=== PATIENT | female | born 1965 | race Hispanic/Latino ===

== ENCOUNTER 2022-04-17 20:03 | Emergency (ER) | payer OTHER ==
[~2022-04-17] VITALS: Ht 170.2 cm; Wt 90.3 kg
[2022-04-17] MEDS ORDERED: BENZONATATE 100 MG CAP PO STA (20:54)
[2022-04-17] MEDS ORDERED: ACETAMINOPHEN 325 MG TAB PO ONE (21:00)
[2022-04-17] MEDS ORDERED: ACETAMINOPHEN 325 MG TAB ONE (21:04)
[2022-04-17 21:25] LABS: STREPTOCOCCUS GRP A ANTIGEN NEGATIVE (NEGATIVE)
[2022-04-17 21:30] LABS: INFLUENZAE A&B ANTIGEN (RAPID) POSITIVE FLU A (NEGATIVE)
[2022-04-17] MEDS ORDERED: PAXLOVID 300-11 EACH PO (22:08)
[2022-04-17] MEDS ORDERED: TAMIFLU75 MG PO (22:08)
[2022-04-17] MEDS ORDERED: BENZONATATE100 MG PO (22:22)
== END 2022-04-17 22:21 | disposition home or self-care (01) ==
LOC: ER 20:10
DX: R50.9 Fever, unspecified (principal); U07.1 COVID-19; J10.1 Influenza due to other identified influenza virus with other respiratory manifestations; R05.9 Cough, unspecified; I10 Essential (primary) hypertension; E11.9 Type 2 diabetes mellitus without complications; J44.9 Chronic obstructive pulmonary disease, unspecified; B20 Human immunodeficiency virus [HIV] disease
CPT/HCPCS: 71046; 83518; 87070; 87400; 99283; U0002